=== PATIENT | male | born 1985 | race Caucasian/White ===

== ENCOUNTER 2020-07-06 18:22 | Emergency (ER) | payer BC ==
[2020-07-06] MEDS ORDERED: Sodium Chloride 0.9% 10 ML Syringe FLUSH PRN (19:18)
[2020-07-06] MEDS ORDERED: Ketorolac 30 MG/ML SDV IVPUSH ONE (19:20)
[2020-07-06] MEDS ORDERED: methylPREDNISolone Sodium Succinate 125 MG/2 ML SDV IVPUSH ONE (19:20)
[2020-07-06] MEDS ORDERED: Sodium Chloride 0.9% 1,000 ML IV SCH (19:30)
--- NOTE | 2020-07-06 19:34 | EDM.PDOC ---
ED HPI GENERAL MEDICAL PROBLEM - General Chief Complaint: Respiratory Problem Stated Complaint: HAS STREP THROAT SWOLLEN DIFFICULT TO BREATHE Time Seen by Provider: 07/06/20 18:48 Source of Information: Reports: Patient History Limitations: Reports: No Limitations - History of Present Illness INITIAL COMMENTS - FREE TEXT/NARRATIVE: The patient presents with difficulty breathing. He was recently diagnosed with strep. His COVID came back negative yesterday. He is on Pen VK. He has swelling of his tonsils and uvula. He says they are swollen and touching in the back and it is making it hard to breath. He has fevers and chills. He has no cough, chest pain, abdominal pain, nausea or vomiting. Onset: Gradual Duration: Day(s): Location: Reports: Other (throat) Quality: Reports: Sharp Severity: Moderate Improves with: Reports: None Worsens with: Reports: None Associated Symptoms: Reports: Fever/Chills, Shortness of Breath. Denies: Chest Pain, Cough, Headaches, Nausea/Vomiting Throat Pain Score (Numeric/FACES): 4 - Related Data Allergies Allergy/AdvReac Type Severity Reaction Status Date / Time No Known Allergies Allergy Verified 07/06/20 18:51 Home Meds: Home Meds Escitalopram Oxalate [Lexapro] 20 mg PO DAILY 07/06/20 [History] Pantoprazole Sodium [Protonix] 40 mg PO DAILY 07/06/20 [History] Penicillin V Potassium 500 mg PO TID 07/06/20 [History] atorvaSTATin [Lipitor] 80 mg PO DAILY 07/06/20 [History] lisinopriL [Lisinopril] 20 mg PO DAILY 07/06/20 [History] Past Medical History Cardiovascular History: Reports: High Cholesterol, Hypertension Gastrointestinal History: Reports: GERD Musculoskeletal History: Reports: Other (See Below) Other Musculoskeletal History: shoulder repair Psychiatric History: Reports: Anxiety, Depression - Infectious Disease History Infectious Disease History: Reports: Other (See Below) Other Infectious Disease History: strep throat Social & Family History - Tobacco Use Smoking Status *Q: Current Every Day Smoker Years of Tobacco use: 10 Packs/Tins Daily: 0.4 - Caffeine Use Caffeine Use: Reports: Coffee, Energy Drinks - Recreational Drug Use Recreational Drug Use: No ED ROS GENERAL - Review of Systems Review Of Systems: See Below Constitutional: Reports: Fever, Chills HEENT: Reports: Throat Pain, Throat Swelling Respiratory: Reports: No Symptoms Cardiovascular: Reports: No Symptoms Endocrine: Reports: No Symptoms GI/Abdominal: Reports: No Symptoms ED EXAM, GENERAL - Physical Exam Exam: See Below Exam Limited By: No Limitations General Appearance: Alert, No Apparent Distress Ears: Normal External Exam Nose: Normal Inspection Throat/Mouth: Other (edema and erythema of both tonsils and the uvula is swollen and red) Neck: Lymphadenopathy (L), Lymphadenopathy (R) Respiratory/Chest: No Respiratory Distress, Lungs Clear, Normal Breath Sounds Cardiovascular: Regular Rate, Rhythm, No Edema, No Murmur GI/Abdominal: Soft, Non-Tender, No Organomegaly, No Mass Extremities: Normal Inspection Neurological: Alert, Oriented, No Motor/Sensory Deficits Course - Vital Signs Last Recorded V/S: Last Vital Signs Temp 97.5 F 07/06/20 18:48 Pulse 80 07/06/20 18:48 Resp 16 07/06/20 18:48 BP 133/85 07/06/20 18:48 Pulse Ox 98 07/06/20 18:48 - Orders/Labs/Meds Orders: Active Orders 24 hr Category Date Time Status Cardiac Monitoring [RC] . DIRECTED Care 07/06/20 19:18 Active Peripheral IV Care [RC] . DIRECTED Care 07/06/20 19:18 Active Sodium Chloride 0.9% [Normal Saline] 1,000 ml Med 07/06/20 19:30 Active IV .BOLUS Sodium Chloride 0.9% [Saline Flush] Med 07/06/20 19:18 Active 10 ml FLUSH ASDIRECTED PRN Peripheral IV Insertion Adult [OM.PC] Stat Oth 07/06/20 19:18 Ordered Medication Orders Sodium Chloride (Normal Saline) 1,000 mls @ 1,000 mls/hr IV .BOLUS TATI Last Admin: 07/06/20 19:39 Dose: 1,000 mls/hr Documented by: SALLY Sodium Chloride (Saline Flush) 10 ml FLUSH ASDIRECTED PRN PRN Reason: Keep Vein Open Last Admin: 07/06/20 19:45 Dose: 10 ml Documented by: SALLY Labs: Laboratory Tests 07/06/20 07/06/20 07/06/20 Range/Units 19:35 19:35 19:35 WBC 7.17 (4.23-9.07) K/mm3 RBC 5.07 (4.63-6.08) M/mm3 Hgb 16.4 (13.7-17.5) gm/dl Hct 47.7 (40.1-51.0) % MCV 94.1 H (79.0-92.2) fl MCH 32.3 H (25.7-32.2) pg MCHC 34.4 (32.2-35.5) g/dl RDW Std Deviation 44.6 H (35.1-43.9) fL Plt Count 240 (163-337) K/mm3 MPV 9.1 L (9.4-12.3) fl Neut % (Auto) 74.2 H (34.0-67.9) % Lymph % (Auto) 14.6 L (21.8-53.1) % Parmer % (Auto) 9.3 (5.3-12.2) % Eos % (Auto) 1.7 (0.8-7.0) Baso % (Auto) 0.1 (0.1-1.2) % Neut # (Auto) 5.31 (1.78-5.38) K/mm3 Lymph # (Auto) 1.05 L (1.32-3.57) K/mm3 Parmer # (Auto) 0.67 (0.30-0.82) K/mm3 Eos # (Auto) 0.12 (0.04-0.54) K/mm3 Baso # (Auto) 0.01 (0.01-0.08) K/mm3 Sodium 139 (136-145) mEq/L Potassium 3.9 (3.5-5.1) mEq/L Chloride 101 (98-107) mEq/L Carbon Dioxide 28 (21-32) mEq/L Anion Gap 13.9 (5-15) BUN 13 (7-18) mg/dL Creatinine 1.2 (0.7-1.3) mg/dL Est Cr Clr Drug Dosing 96.10 mL/min Estimated GFR (MDRD) > 60 (>60) mL/min BUN/Creatinine Ratio 10.8 L (14-18) Glucose 71 L (74-106) mg/dL Calcium 8.7 (8.5-10.1) mg/dL Total Bilirubin 0.6 (0.2-1.0) mg/dL AST 19 (15-37) U/L ALT 37 (16-63) U/L Alkaline Phosphatase 57 (46-116) U/L Total Protein 7.0 (6.4-8.2) g/dl Albumin 3.6 (3.4-5.0) g/dl Globulin 3.4 gm/dL Albumin/Globulin Ratio 1.1 (1-2) Monoscreen Negative (NEGATIVE) Meds: Medications Generic Name Dose Route Start Last Admin Trade Name Freq PRN Reason Stop Dose Admin Sodium Chloride 1,000 mls @ 1,000 mls/hr 07/06/20 19:30 07/06/20 19:39 Normal Saline IV 1,000 mls/hr .BOLUS TATI Administration Sodium Chloride 10 ml 07/06/20 19:18 07/06/20 19:45 Saline Flush FLUSH 10 ml ASDIRECTED PRN Administration Keep Vein Open Discontinued Medications Generic Name Dose Route Start Last Admin Trade Name Freq PRN Reason Stop Dose Admin Ketorolac Tromethamine 30 mg 07/06/20 19:20 07/06/20 19:40 Toradol IVPUSH 07/06/20 19:21 30 mg ONETIME ONE Administration Methylprednisolone Sodium Succinate 125 mg 07/06/20 19:20 07/06/20 19:43 Solu-Medrol IVPUSH 07/06/20 19:21 125 mg ONETIME ONE Administration - Re-Assessments/Exams Free Text/Narrative Re-Assessment/Exam: 07/06/20 19:33 I ordered an IV NS 1L bolus, solu-medrol 125mg IV, toradol 30mg IV, and labs. 07/06/20 20:55 His CBC and CMP look good. His mono is negative. He does feel better. I will discharge him home. Departure - Departure Time of Disposition: 20:55 Disposition: Home, Self-Care 01 Condition: Good Clinical Impression: Strep pharyngitis - Discharge Information *PRESCRIPTION DRUG MONITORING PROGRAM REVIEWED*: No *COPY OF PRESCRIPTION DRUG MONITORING REPORT IN PATIENT MARITA: No Referrals: Efrain Ortega MD [Primary Care Provider] - 1 Week Forms: ED Department Discharge Additional Instructions: Keep taking your antibiotics. Take motrin or tylenol for pain. Drink ice cold water a few times per day to help with the swelling. Please return if you are worse. Sepsis Event Note (ED) - Evaluation Sepsis Screening Result: No Definite Risk - Focused Exam Vital Signs: Vital Signs Temp Pulse Resp BP Pulse Ox 07/06/20 18:48 97.5 F 80 16 133/85 98 - My Orders Last 24 Hours: My Active Orders 07/06/20 19:18 Cardiac Monitoring [RC] . DIRECTED Peripheral IV Care [RC] . DIRECTED Sodium Chloride 0.9% [Saline Flush] 10 ml FLUSH ASDIRECTED PRN Peripheral IV Insertion Adult [OM.PC] Stat 07/06/20 19:30 Sodium Chloride 0.9% [Normal Saline] 1,000 ml IV .BOLUS - Assessment/Plan Last 24 Hours: My Active Orders 07/06/20 19:18 Cardiac Monitoring [RC] . DIRECTED Peripheral IV Care [RC] . DIRECTED Sodium Chloride 0.9% [Saline Flush] 10 ml FLUSH ASDIRECTED PRN Peripheral IV Insertion Adult [OM.PC] Stat 07/06/20 19:30 Sodium Chloride 0.9% [Normal Saline] 1,000 ml IV .BOLUS
== END 2020-07-06 21:20 | disposition home or self-care (01) ==
LOC: JD.ED 18:22
DX: J02.0 Streptococcal pharyngitis (principal); E78.00 Pure hypercholesterolemia, unspecified; I10 Essential (primary) hypertension; K21.9 Gastro-esophageal reflux disease without esophagitis; F41.9 Anxiety disorder, unspecified; F32.9 Major depressive disorder, single episode, unspecified; F17.210 Nicotine dependence, cigarettes, uncomplicated; Z79.899 Other long term (current) drug therapy
CPT/HCPCS: 36415; 80053; 85025; 86308; 96361; 96374; 96375; 99284; J1885; J2930; J7030; 99283

== ENCOUNTER 2021-04-04 23:15 | Emergency (ER) | payer BC ==
[2021-04-04] MEDS ORDERED: Ondansetron 4 MG Tab.DIS PO ONE (23:55)
--- NOTE | 2021-04-05 00:04 | EDM.PDOC ---
ED HPI GENERAL MEDICAL PROBLEM - General Chief Complaint: Gastrointestinal Problem Stated Complaint: THROWING UP FOR OVER A WEEK Time Seen by Provider: 04/04/21 23:38 Source of Information: Reports: Patient, Family () History Limitations: Reports: No Limitations - History of Present Illness INITIAL COMMENTS - FREE TEXT/NARRATIVE: Mr. De Anda is a very pleasant 35-year-old gentleman who now presents the ED stating that he has had nausea, vomiting, and watery, non-bloody diarrhea since this past 03/30/2021. He has experienced abdominal cramps, although no fever. He states that his symptoms tend to be better during the day, but worse at night. He states that he was seen at the walk-in clinic on 04/02/2021, where a CMP, CBC, and lipase were performed, all of which were unremarkable. He was told that he has viral gastroenteritis, although no prescriptions were written. The patient states that he took his first, and only, dose of loperamide at 18:30 this evening. The patient states that he had similar symptoms a few years ago, when the Nexium that he was on stopped working. He was subsequently switched to pantoprazole, which he ordinarily takes once a day, but over this past week, has been taking twice, or even 3 times a day. Here in the ED, the patient's initial BP is found to be mildly elevated at 140/95, otherwise, he is hemodynamically stable, afebrile, saturating 98% on room air. He appears to be comfortable, in no acute distress. Other than his nausea, vomiting, diarrhea, and abdominal cramps, the patient denies having a recent fever, chills, sore throat, ear pain, nasal or sinus congestion, cough, dyspnea, chest pain, palpitations, constipation, urinary symptoms, recent weight gain or weight loss, recent bloody bowel movements or black bowel movements, recent joint aches, headaches, or rashes. The patient's PCP is Dr. Efrain Ortega. His Clean Up Helper Banquet is Dr. Jesica Rueda. His Surgeon is Dr. Rosalina Vazquez. His Papier Mache' Molder is Dr. Nakul Kellogg. Upper Abdominal Pain Score (Numeric/FACES): 8 - Related Data Allergies Allergy/AdvReac Type Severity Reaction Status Date / Time No Known Allergies Allergy Verified 07/06/20 18:51 Home Meds: Home Meds Escitalopram Oxalate [Lexapro] 20 mg PO DAILY 07/06/20 [History] Pantoprazole Sodium [Protonix] 40 mg PO DAILY 07/06/20 [History] atorvaSTATin [Lipitor] 80 mg PO DAILY 07/06/20 [History] lisinopriL [Lisinopril] 20 mg PO DAILY 07/06/20 [History] Sertraline [Zoloft] 100 mg PO DAILY 04/04/21 [History] Dexlansoprazole [Dexilant] 1 cap PO DAILY #30 cap.dr.bp 04/05/21 [Rx] Ondansetron [Zofran ODT] 1 tab PO Q8H PRN #10 tab.dis 04/05/21 [Rx] Past Medical History Cardiovascular History: Reports: High Cholesterol, Hypertension Gastrointestinal History: Reports: GERD, Hiatal Hernia Psychiatric History: Reports: Anxiety, Depression - Past Surgical History HEENT Surgical History: Reports: Oral Surgery (dental extractions) GI Surgical History: Reports: EGD (x 2) Male Surgical History: Reports: Vasectomy Musculoskeletal Surgical History: Reports: Shoulder Surgery (right, arthroscopic) Social & Family History - Tobacco Use Tobacco Use Status *Q: Current Every Day Tobacco User Tobacco Use Within Last Twelve Months: Smokeless Tobacco (Chews 1 can/day) Years of Tobacco use: 17 Packs/Tins Daily: 0.2 Tobacco Use Comment: Started smoking at 18 yrs old - Caffeine Use Caffeine Use: Reports: Coffee, Energy Drinks - Alcohol Use Alcohol Use History: Yes Alcohol Use Frequency: Socially - Recreational Drug Use Recreational Drug Use: Yes Drug Use in Last 12 Months: No Recreational Drug Type: Reports: Cocaine (last snorted 2016), Methamphetamine (last snorted, smoked, injected 2019) - Living Situation & Occupation Living situation: Reports: , with Spouse, with Family (2 kids) 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 ED EXAM, GI/ABD - Physical Exam Exam: See Below Exam Limited By: No Limitations General Appearance: Alert, WD/WN, No Apparent Distress Eyes: Bilateral: Normal Appearance, EOMI Ears: Normal External Exam, Hearing Grossly Normal Nose: Normal Inspection Throat/Mouth: Normal Inspection, Normal Lips, Normal Voice, No Airway Compromise Head: Atraumatic, Normocephalic Neck: Normal Inspection, Full Range of Motion Respiratory/Chest: No Respiratory Distress, Lungs Clear, Normal Breath Sounds, No Accessory Muscle Use Cardiovascular: Normal Peripheral Pulses, Regular Rate, Rhythm, No Edema, No Gallop, No JVD, No Murmur, No Rub GI/Abdominal Exam: Normal Bowel Sounds, Soft, No Organomegaly, No Distention, No Abnormal Bruit, No Mass, Tender (mild, generalized, non-focal) Back Exam: Normal Inspection, Full Range of Motion, NT Extremities: Normal Inspection, Normal Range of Motion, No Pedal Edema, Normal Capillary Refill Neurological: Alert, Oriented, Normal Cognition, No Motor/Sensory Deficits Psychiatric: Normal Affect Skin Exam: Warm, Dry, Intact, Normal Color, No Rash Course - Vital Signs Last Recorded V/S: Last Vital Signs Temp 37.1 C 04/04/21 23:25 Pulse 91 04/04/21 23:25 Resp 16 04/04/21 23:25 BP 140/95 H 04/04/21 23:25 Pulse Ox 98 04/04/21 23:25 - Orders/Labs/Meds Labs: Laboratory Tests 04/04/21 04/04/21 Range/Units 23:30 23:30 WBC 9.20 H (4.23-9.07) K/mm3 RBC 5.77 (4.63-6.08) M/mm3 Hgb 17.9 H D (13.7-17.5) gm/dl Hct 52.5 H (40.1-51.0) % MCV 91.0 D (79.0-92.2) fl MCH 31.0 (25.7-32.2) pg MCHC 34.1 (32.2-35.5) g/dl RDW Std Deviation 46.1 H (35.1-43.9) fL Plt Count 358 H D (163-337) K/mm3 MPV 9.2 L (9.4-12.3) fl Neutrophils % (Manual) 74 H (40-60) % Band Neutrophils % 0 (0-10) % Lymphocytes % (Manual) 14 L (20-40) % Atypical Lymphs % 0 % Monocytes % (Manual) 11 H (2-10) % Eosinophils % (Manual) 0 L (0.8-7.0) % Basophils % (Manual) 1 (0.2-1.2) Platelet Estimate Adequate RBC Morph Comment Normal Sodium 139 (136-145) mEq/L Potassium 3.7 (3.5-5.1) mEq/L Chloride 106 (98-107) mEq/L Carbon Dioxide 22 (21-32) mEq/L Anion Gap 14.7 (5-15) BUN 8 (7-18) mg/dL Creatinine 1.1 (0.7-1.3) mg/dL Est Cr Clr Drug Dosing 103.86 mL/min Estimated GFR (MDRD) > 60 (>60) mL/min BUN/Creatinine Ratio 7.3 L (14-18) Glucose 100 H (70-99) mg/dL Calcium 9.0 (8.5-10.1) mg/dL Magnesium 1.7 L (1.8-2.4) mg/dL Total Bilirubin 0.7 (0.2-1.0) mg/dL AST 32 (15-37) U/L ALT 81 H (16-63) U/L Alkaline Phosphatase 95 (46-116) U/L Total Protein 6.8 (6.4-8.2) g/dl Albumin 3.8 (3.4-5.0) g/dl Globulin 3.0 gm/dL Albumin/Globulin Ratio 1.3 (1-2) Meds: Medications Discontinued Medications Generic Name Dose Route Start Last Admin Trade Name Freq PRN Reason Stop Dose Admin Ondansetron HCl 4 mg 04/04/21 23:55 04/05/21 00:03 Ondansetron 4 Mg Tab.Dis PO 04/04/21 23:56 4 mg ONETIME ONE Administration - Re-Assessments/Exams Free Text/Narrative Re-Assessment/Exam: 04/04/21 23:56 As above, the patient has been experiencing nausea, vomiting, and watery, non- bloody diarrhea since Thursday. He was seen at the walk-in clinic on Thursday, where a CBC, CMP, and lipase level were all unremarkable. He was told that he has viral gastroenteritis, and that it would likely pass in about a week. He took his first and only dose of loperamide this evening, however, he has not been prescribed an antiemetic. He is concerned that his symptoms are due to failure of his PPI, as he had similar symptoms several years ago, which resolved after he was switched to his current pantoprazole. It is true that PPIs can often suddenly fail for no apparent reason, however, when that happens, patients typically redevelop symptoms of GERD, not vomiting and diarrhea, however, patient states that it happened to him last time. If his current symptoms are due to a failure of his pantoprazole, that is an unusual reaction, however, I have no problem switching him to a different PPI. For today's purposes, I have ordered some blood test to make sure that there are no significant fluid or electrolyte shifts that we need to correct. In the meantime, the patient will be given some oral Zofran. 04/05/21 00:41 The patient's CBC is remarkable for mild leukocytosis of 9.20, but with 0% bandemia. His H/H are slightly elevated at 17.9/52.5, with mild thrombocytosis of 350,000, and the remainder of his CBC being unremarkable. His CMP is remarkable for an ALT slightly elevated at 81, with an AST normal at 32, the remainder of his CMP being unremarkable. His magnesium level is slightly depressed at 1.7. 04/05/21 00:56 Test results discussed with the patient and his . As above, the patient appears to be somewhat hemoconcentrated, but he should be able to take care of this by staying adequately hydrated. I will submit prescriptions for dexlansoprazole (Dexilant) and Zofran ODT, that he can moss picker in the morning. He can continue to take OTC loperamide as needed. If his symptoms persist, he should follow-up with his PCP. Departure - Departure Time of Disposition: 00:57 Disposition: Home, Self-Care 01 Condition: Good Clinical Impression: Gastroenteritis - Discharge Information *PRESCRIPTION DRUG MONITORING PROGRAM REVIEWED*: Not Applicable *COPY OF PRESCRIPTION DRUG MONITORING REPORT IN PATIENT MARITA: Not Applicable Prescriptions: Dexlansoprazole [Dexilant] 1 cap PO DAILY #30 cap. Ondansetron [Zofran ODT] 1 tab PO Q8H PRN #10 tab.dis PRN Reason: Nausea/Vomiting Referrals: Efrain Ortega MD [Primary Care Provider] - Jesica Rueda MD [Ordering Only Provider] - Nakul Kellogg DO [Ordering Only Provider] - Rosalina Vazquez MD [Physician] - Forms: ED Department Discharge Additional Instructions: You were seen in the emergency room for nausea, vomiting, diarrhea, and abdominal cramps since 03/30/2021. Work-up in the ER included several blood tests, which found you to be somewhat hemoconcentrated (dry), but with no significant electrolyte abnormalities that required IV fluid. We recommend that you stay adequately hydrated. Gatorade or Powerade are best. You may take 1 tablet (2 mg) of the [id number] anti-diarrheal medicine loperamide (Imodium AD) after each loose bowel movement, to a maximum of 8 tab lets (16 mg) within a 24-hour period. Be careful, as this medicine can cause significant constipation. Prescriptions for the antinausea medicine Zofran and the proton pump inhibitor dexlansoprazole (Dexilant) have been sent to the [facility] located in the [employer] store. You may dissolve 1 tablet of Zofran on your tongue up to every 8 hours, as needed for nausea/vomiting. Take 1 tablet of dexlansoprazole every day, as prescribed. If your symptoms persist, please follow-up with your PCP, Dr. Efrain Ortega, for further evaluation. If any other problems, please do not hesitate to return to the ER. Sepsis Event Note (ED) - Evaluation Sepsis Screening Result: No Definite Risk - Focused Exam Vital Signs: Vital Signs Temp Pulse Resp BP Pulse Ox 04/04/21 23:25 37.1 C 91 16 140/95 H 98
== END 2021-04-05 01:20 | disposition home or self-care (01) ==
LOC: JD.ED 23:15
DX: K52.9 Noninfective gastroenteritis and colitis, unspecified (principal); E78.00 Pure hypercholesterolemia, unspecified; I10 Essential (primary) hypertension; Z72.0 Tobacco use
CPT/HCPCS: 36415; 80053; 83735; 85007; 85027; 99284; A9270; 99283

== ENCOUNTER 2023-03-20 05:33 | Emergency (ER) | payer BC | END 2023-03-20 07:09 | disposition home or self-care (01) | LOC: JD.ED 05:33 | DX: S46.911A Strain of unspecified muscle, fascia and tendon at shoulder and upper arm level, right arm, initial encounter (principal); E78.00 Pure hypercholesterolemia, unspecified; I10 Essential (primary) hypertension; K21.9 Gastro-esophageal reflux disease without esophagitis; Z79.899 Other long term (current) drug therapy | CPT/HCPCS: 73030-26-RT; 73030-RT; 99283 ==

== ENCOUNTER 2023-06-18 20:17 | Emergency (ER) | payer BC | END 2023-06-18 23:37 | disposition home or self-care (01) | LOC: JD.ED 20:17 | DX: M25.511 Pain in right shoulder (principal); I10 Essential (primary) hypertension; E78.00 Pure hypercholesterolemia, unspecified; K21.9 Gastro-esophageal reflux disease without esophagitis; F17.210 Nicotine dependence, cigarettes, uncomplicated; Z79.899 Other long term (current) drug therapy | CPT/HCPCS: 73000-26-RT; 73000-RT; 73030-26-RT; 73030-RT; 73050; 73050-26; 99282; 99283 ==

== ENCOUNTER 2023-10-08 15:15 | Emergency (ER) | payer BC ==
[2023-10-08] MEDS ORDERED: Sodium Chloride 0.9% 10 ML Syringe FLUSH PRN (15:32)
[2023-10-08 16:11] LABS: BASOPHILS PERCENT AUTO 0.2 % (0.0-1.0); EOSINOPHILS ABSOLUTE AUTO 0.2 K/mm3 (0.0-0.4); EOSINOPHILS PERCENT AUTO 3.8 % (0.0-6.0); HEMATOCRIT 46.2 % (42.0-52.0); HEMOGLOBIN 15.7 gm/dl (14.0-18.0); IMMATURE GRAN ABSOLUTE AUTO 0.02 K/mm3 (0.00-0.05); IMMATURE GRAN PERCENT AUTO 0.3 % (0.0-0.4); LYMPHOCYTES ABSOLUTE AUTO 1.2 K/mm3 (1.0-4.8); LYMPHOCYTES PERCENT AUTO 20.2 % (24.0-44.0); MEAN CORPUSCULAR HEMOGLOBIN 29.1 pg (28.0-32.0); MEAN CORPUSCULAR VOLUME 85.7 fl (83.0-99.0); MEAN PLATELET VOLUME 8.5 fl (9.4-12.4); MONOCYTES ABSOLUTE AUTO 0.3 K/mm3 (0.0-0.8); MONOCYTES PERCENT AUTO 5.1 % (0.0-8.0); NEUTROPHILS ABSOLUTE AUTO 4.1 K/mm3 (1.8-7.7); NEUTROPHILS PERCENT AUTO 70.4 % (41.0-71.0); PLATELET COUNT,PLT 291 K/mm3 (150-400); RED BLOOD CELL COUNT 5.39 M/mm3 (4.52-5.90); WHITE BLOOD CELL COUNT,WBC 5.84 K/mm3 (3.9-11.3)
[2023-10-08 16:25] LABS: A/G RATIO 1.1 (1-2); ALANINE AMINOTRANSFERASE,ALT 42 U/L (16-63); ALBUMIN 3.7 g/dl (3.4-5.0); ALKALINE PHOSPHATASE 57 U/L (46-116); ANION GAP 11.1 (5-15); ASPARTATE AMNIOTRANSFERASE,AST 45 U/L (15-37); BILIRUBIN TOTAL 0.8 mg/dL (0.2-1.0); BLOOD UREA NITROGEN,BUN 14 mg/dL (7-18); BUN/CREATININE RATIO 8.8 (14-18); CALCIUM 8.9 mg/dL (8.5-10.1); CARBON DIOXIDE,CO2 29 mEq/L (21-32); CHLORIDE,CL 102 mEq/L (98-107); CREATININE 1.6 mg/dL (0.7-1.3); ESTIMATED GFR 57 mL/min (>60); GLUCOSE RANDOM 80 mg/dL (70-99); MAGNESIUM 1.9 mg/dL (1.8-2.4); POTASSIUM,K 4.1 mEq/L (3.5-5.1); SODIUM,NA 138 mEq/L (136-145)
[2023-10-08 18:09] LABS: APPEARANCE,URINE CLEAR (Clear); BILIRUBIN,URINE NEGATIVE (Negative); COLOR,URINE YELLOW (Yellow); GLUCOSE,URINE NEGATIVE (Negative); KETONES,URINE TRACE (Negative); LEUKOCYTE ESTERASE,URINE NEGATIVE (Negative); NITRITE,URINE NEGATIVE (Negative); OCCULT BLOOD,URINE NEGATIVE (Negative); PROTEIN,URINE 2+ (Negative)
[2023-10-08 18:18] LABS: BACTERIA,URINE FEW /hpf (FEW); BARBITURATE SCREEN,URINE NEGATIVE (CUTOFF=200); BENZODIAZEPINES SCREEN,URINE NEGATIVE (CUTOFF=150); BUPRENORPHINE SCREEN,URINE NEGATIVE (CUTOFF=10); EPITHELIAL CELLS,URINE NOT SEEN /hpf (0-5); HYALINE CASTS,URINE 0-5 /lpf (0-5); METHADONE SCREEN, URINE NEGATIVE (CUT0FF=200); METHAMPHETAMINES SCREEN, URINE PRESUMPTIVE POSITIVE (CUTOFF=500); OXYCODONE SCREEN,URINE NEGATIVE (CUT0FF=100); RBC,URINE 0-5 /hpf (0-5); THC SCREEN,URINE 20 NG/ML NEGATIVE (CUTOFF=50); WBC,URINE 0-5 /hpf (0-5)
[2023-10-08 18:21] LABS: MUCUS,URINE MANY /hpf (FEW)
[2023-10-08 18:23] LABS: AMPHETAMINES SCREEN, URINE PRESUMPTIVE POSITIVE (CUTOFF=500)
[2023-10-09 00:22] LABS: AMORPHOUS SEDIMENT,URINE FEW /hpf (NOT SEEN)
== END 2023-10-08 18:53 | disposition home or self-care (01) ==
LOC: JD.ED 15:15
DX: R55 Syncope and collapse (principal); T43.651A Poisoning by methamphetamines accidental (unintentional), initial encounter; K21.9 Gastro-esophageal reflux disease without esophagitis; I10 Essential (primary) hypertension; E78.00 Pure hypercholesterolemia, unspecified; Z79.899 Other long term (current) drug therapy
CPT/HCPCS: 36415; 70450; 70450-26; 71046; 71046-26; 72125; 72125-26; 80053; 80306; 80307; 81001; 83735; 85025; 93005; 99282; 99285

== ENCOUNTER 2024-09-15 03:10 | Observation (INO) | payer BC, MEDICAID ==
[2024-09-15] MEDS: EPINEPHrine 1 MG/ML SDV IM ONE (03:34)
[2024-09-15 03:35] LABS: BASOPHILS PERCENT AUTO 0.6 % (0.0-1.0); EOSINOPHILS ABSOLUTE AUTO 0.4 K/mm3 (0.0-0.4); EOSINOPHILS PERCENT AUTO 8.9 % (0.0-6.0); HEMATOCRIT 41.3 % (42.0-52.0); HEMOGLOBIN 13.7 gm/dl (14.0-18.0); IMMATURE GRAN ABSOLUTE AUTO 0.01 K/mm3 (0.00-0.05); IMMATURE GRAN PERCENT AUTO 0.2 % (0.0-0.4); LYMPHOCYTES ABSOLUTE AUTO 1.5 K/mm3 (1.0-4.8); LYMPHOCYTES PERCENT AUTO 31.4 % (24.0-44.0); MEAN CORPUSCULAR HEMOGLOBIN 27.3 pg (28.0-32.0); MEAN CORPUSCULAR HGB CONC 33.2 g/dl (32.0-36.0); MEAN CORPUSCULAR VOLUME 82.3 fl (83.0-99.0); MEAN PLATELET VOLUME 8.5 fl (9.4-12.4); MONOCYTES ABSOLUTE AUTO 0.4 K/mm3 (0.0-0.8); MONOCYTES PERCENT AUTO 8.1 % (0.0-8.0); NEUTROPHILS ABSOLUTE AUTO 2.5 K/mm3 (1.8-7.7); NEUTROPHILS PERCENT AUTO 50.8 % (41.0-71.0); PLATELET COUNT,PLT 283 K/mm3 (150-400); RED BLOOD CELL COUNT 5.02 M/mm3 (4.52-5.90); WHITE BLOOD CELL COUNT,WBC 4.84 K/mm3 (3.9-11.3)
[2024-09-15] MEDS: diphenhydrAMINE 50 MG/ML SDV IVPUSH ONE (03:36)
[2024-09-15] MEDS: methylPREDNISolone Sodium Succinate 125 MG/2 ML SDV IVPUSH ONE (03:39)
[2024-09-15] MEDS: Sodium Chloride 0.9% 10 ML Syringe FLUSH PRN (03:43)
[2024-09-15] MEDS: Iopamidol 612 MG/ML 100 ML Bottle IVPUSH ONE (03:54)
[2024-09-15 03:58] LABS: A/G RATIO 1.4 (1-2); BUN/CREATININE RATIO 12.3 (14-18); CALCIUM 9.1 mg/dL (8.5-10.1); CREATININE 1.3 mg/dL (0.7-1.3); EST CRCL DRUG DOSING (CG) 85.39 mL/min; PROTEIN TOTAL,TP 6.8 g/dl (6.4-8.2)
[2024-09-15] MEDS: Dexamethasone 4 MG/ML SDV TOP ONE (04:00)
[2024-09-15 04:01] LABS: LACTIC ACID 0.5 mmol/L (0.4-2.0)
[2024-09-15] MEDS: D5 1/2 NS w/ 20 mEq/L KCl 1,000 ML IV SCH (05:56)
[2024-09-15] MEDS ORDERED: D5 1/2 NS w/ 10 mEq/L KCl 1,000 ML IV SCH (06:00)
[2024-09-15] MEDS ORDERED: Acetaminophen 325 MG Tab PO PRN (07:43)
[2024-09-15] MEDS: Sodium Chloride 0.9% 250 ML IV ONE (10:49)
== END 2024-09-15 17:09 | disposition home or self-care (01) ==
LOC: JD.ED 03:10 → JD.MS 05:45
PROVIDERS: ADMIT Family Medicine; ATTEND Family Medicine
DX: T78.3XXA Angioneurotic edema, initial encounter (principal); I10 Essential (primary) hypertension; E78.00 Pure hypercholesterolemia, unspecified; K21.9 Gastro-esophageal reflux disease without esophagitis
CPT/HCPCS: 36415; 36430; 70360; 70360-26; 80053; 83605; 85025; 85652; 86140; 86160; 86900; 86901; 94762; 96365; 96372; 96375; 99285-25; G0378; J0171; J0598; J1100; J1200; J2919; J3480; J3490; J7050; P9017

== ENCOUNTER 2024-10-14 11:25 | Emergency (ER) | payer OTHER ==
[2024-10-14 12:32] LABS: BASOPHILS PERCENT AUTO 0.3 % (0.0-1.0); EOSINOPHILS ABSOLUTE AUTO 0.2 K/mm3 (0.0-0.4); EOSINOPHILS PERCENT AUTO 4.3 % (0.0-6.0); HEMATOCRIT 38.7 % (42.0-52.0); HEMOGLOBIN 13.6 gm/dl (14.0-18.0); IMMATURE GRAN ABSOLUTE AUTO 0.01 K/mm3 (0.00-0.05); IMMATURE GRAN PERCENT AUTO 0.3 % (0.0-0.4); LYMPHOCYTES ABSOLUTE AUTO 1.1 K/mm3 (1.0-4.8); MEAN CORPUSCULAR HEMOGLOBIN 27.9 pg (28.0-32.0); MEAN CORPUSCULAR HGB CONC 35.1 g/dl (32.0-36.0); MEAN CORPUSCULAR VOLUME 79.3 fl (83.0-99.0); MEAN PLATELET VOLUME 9.4 fl (9.4-12.4); MONOCYTES ABSOLUTE AUTO 0.4 K/mm3 (0.0-0.8); MONOCYTES PERCENT AUTO 9.5 % (0.0-8.0); NEUTROPHILS ABSOLUTE AUTO 2.3 K/mm3 (1.8-7.7); NEUTROPHILS PERCENT AUTO 57.6 % (41.0-71.0); PLATELET COUNT,PLT 301 K/mm3 (150-400); RED BLOOD CELL COUNT 4.88 M/mm3 (4.52-5.90)
[2024-10-14 13:28] LABS: A/G RATIO 1.5 (1-2); ALBUMIN 3.9 g/dl (3.4-5.0); ANION GAP 11.1 (5-15); BILIRUBIN TOTAL 1.1 mg/dL (0.2-1.0); BUN/CREATININE RATIO 8.2 (14-18); CALCIUM 8.8 mg/dL (8.5-10.1); CREATININE 1.1 mg/dL (0.7-1.3); EST CRCL DRUG DOSING (CG) 100.92 mL/min; POTASSIUM,K 4.1 mEq/L (3.5-5.1); PROTEIN TOTAL,TP 6.5 g/dl (6.4-8.2)
[2024-10-14] MEDS: Furosemide 20 MG Tab PO ONE (13:59)
== END 2024-10-14 14:20 | disposition home or self-care (01) ==
LOC: JD.ED 11:25
DX: I11.9 Hypertensive heart disease without heart failure (principal); E78.00 Pure hypercholesterolemia, unspecified; Z88.8 Allergy status to other drugs, medicaments and biological substances; Z79.899 Other long term (current) drug therapy
CPT/HCPCS: 36415; 71046; 80053; 83880; 84484; 85025; 85379; 93005; 99285; A9270; 93010; 99284

== ENCOUNTER 2025-01-11 06:30 | Day surgery (SDC) | payer BC ==
[~2025-01-11 06:30] MED LIST: Sodium Chloride 0.9% 10 ML Syringe FLUSH PRN; Sodium Chloride 0.9% 10 ML Syringe FLUSH SCH
[2025-01-11] MEDS: Lactated Ringers 1,000 ML IV SCH (07:10)
[2025-01-11] MEDS ORDERED: Metoprolol Tartrate 5 MG/5 ML SDV ONE (07:26)
[2025-01-11] MEDS ORDERED: ceFAZolin 2 GM Vial ONE (07:37)
[2025-01-11] MEDS ORDERED: fentaNYL 100 MCG/2 ML SDV ONE (07:39)
[2025-01-11] MEDS ORDERED: Propofol 200 MG/20 ML SDV ONE ×2 (07:42→07:43)
[2025-01-11] MEDS ORDERED: Midazolam 1 MG/ML 2 ML SDV ONE (07:51)
[2025-01-11] MEDS ORDERED: dexmedeTOMIDine HCl 200 MCG/2 ML SDV ONE (08:14)
[2025-01-11] MEDS: Bupivacaine 0.25% 10 ML SDV ONE ×2 (08:36→08:42)
[2025-01-11] MEDS: Lidocaine 1% 10 ML MDV ONE ×2 (08:36→08:42)
== END 2025-01-11 09:40 | disposition home or self-care (01) ==
LOC: JD.SDS 06:30
PROVIDERS: ATTEND Orthopaedic Surgery
DX: G56.13 Other lesions of median nerve, bilateral upper limbs (principal); G56.03 Carpal tunnel syndrome, bilateral upper limbs; I10 Essential (primary) hypertension; E78.00 Pure hypercholesterolemia, unspecified; F32.A Depression, unspecified; F41.9 Anxiety disorder, unspecified; K21.9 Gastro-esophageal reflux disease without esophagitis; G47.30 Sleep apnea, unspecified; Z79.899 Other long term (current) drug therapy
CPT/HCPCS: 64721; J0665; J0690; J2003; J2250; J2704; J3010; J3490; J7120; 01810

== ENCOUNTER 2025-04-13 19:58 | Emergency (ER) | payer BC, OTHER ==
[2025-04-13] MEDS: EPINEPHrine 1 MG/ML SDV IM ONE (20:26)
[2025-04-13] MEDS: predniSONE 20 MG Tab PO ONE (20:47)
[2025-04-13] MEDS: hydrOXYzine HCl 25 MG Tab PO ONE (20:49)
== END 2025-04-13 21:43 | disposition home or self-care (01) ==
LOC: JD.ED 19:58
DX: J39.2 Other diseases of pharynx (principal); E78.00 Pure hypercholesterolemia, unspecified; I10 Essential (primary) hypertension; K21.9 Gastro-esophageal reflux disease without esophagitis; Z88.8 Allergy status to other drugs, medicaments and biological substances; Z88.6 Allergy status to analgesic agent; Z79.51 Long term (current) use of inhaled steroids; Z79.899 Other long term (current) drug therapy
CPT/HCPCS: 96372; 99283; A9270; J0171; J7512